=== PATIENT | male | born 1985 | race Caucasian/White ===

== ENCOUNTER 2016-05-12 17:35 | Emergency (ER) | payer OTHER ==
[~2016-05-12] VITALS: Ht 157.5 cm; Wt 68.0 kg
[~2016-05-12 17:35] MED LIST: LEVE750T70 PO
[2016-05-12 17:38] VITALS: Ht 157.5 cm; Wt 68.0 kg
[2016-05-12] MEDS ORDERED: LEVETIRACETAM IV 1,000 MG in SOD CHLORIDE 0.9% 100 ML IVPB STA (17:39)
[2016-05-12 18:33] LABS: BASOPHILS % 0.1 % (0.0-2.0); EOSINOPHILS % 0.1 % (0.0-7.0); HEMATOCRIT 44.1 % (42.0-52.0); HEMOGLOBIN 14.9 g/dl (14.0-18.0); LYMPHOCYTES # 0.6 10^3/ul (0.8-2.9); LYMPHOCYTES % 5.7 % (15.0-51.0); MEAN CORPUSCULAR HEMOGLOBIN 31.9 pg (29.0-33.0); MEAN CORPUSCULAR HGB CONC 33.8 g/dl (32.0-37.0); MEAN CORPUSCULAR VOLUME 94.3 fl (82.0-101.0); MONOCYTE # 0.3 10^3/ul (0.3-0.9); MONOCYTES % 2.6 % (0.0-11.0); NEUTROPHIL # 9.8 10^3/ul (1.6-7.5); NEUTROPHILS % 91.5 % (39.0-77.0); PLATELET COUNT 252 10^3/UL (140-440); RED BLOOD COUNT 4.67 10^6/ul (4.70-6.10); RED CELL DISTRIBUTION WIDTH 14.1 % (11.5-14.5); UNCORRECTED WBC 10.7 10^3/ul (4.8-10.8); WHITE BLOOD COUNT 10.7 10^3/ul (4.8-10.8)
[2016-05-12] MEDS ORDERED: KETOROLAC 30 MG INJ IV STA (18:42)
[2016-05-12 18:47] LABS: CONDITION 1; LH ANALYZER COMMENTS 1
--- NOTE | 2016-05-12 19:03 | ERD ---
ER Documentation Chief Complaint Date/Time DATE: 05/12/16 TIME: 19:00 Chief Complaint SEIZURE LASTED 1 MIN AT HOME IN BED WITNESSED HPI This is a 30-year-old male with a known history of epilepsy. Just prior to arrival the patient was lying in his bed when he had a witnessed tonic-clonic seizure that lasted for 1 minute at home. This was witnessed by his father. Patient lost urinary incontinence but did not bite his tongue. The father phoned 911 and when EMS arrived the father indicated the patient is on Keppra but is very noncompliant with his medications. He has had no recent headache and no fever shaking or chills. When EMS arrived they stated that the patient had slurred speech and appeared to be postictal. ROS All systems reviewed and are negative except as per history of present illness. Medications Home Meds Active Scripts Levetiracetam* (Keppra*) 750 Mg Tablet, 750 MG PO BID for 30 Days, TAB Prov:SALENA SHARPE 02/09/16 Allergies Allergies: Coded Allergies: No Known Allergy (Unverified , 05/12/16) PMhx/Soc Medical and Surgical Hx: pt denies Surgical Hx History of Surgery: No Anesthesia Reaction: No Hx Neurological Disorder: Yes (seizures) Hx Respiratory Disorders: No Hx Cardiac Disorders: No Hx Psychiatric Problems: No Hx Miscellaneous Medical Probl: No Hx Alcohol Use: Yes Hx Substance Use: Yes Hx Tobacco Use: No (smoke Marijuana 2x a day) Smoking Status: Never smoker Physical Exam Vitals Vital Signs Date Time Temp Pulse Resp B/P Pulse Ox O2 Delivery O2 Flow Rate FiO2 05/12/16 17:38 99.6 80 18 130/82 100 Physical Exam Constitutional:Well-developed. Well-nourished. HEENT:Normocephalic. Atraumatic.Pupils were equal round reactive to light. Moist mucous membranes.No tonsillar exudates. No nasoseptal hematoma. No hemotympanum. Neck: No nuchal rigidity. No lymphadenopathy. No posterior cervical spine tenderness or step-offs. Respiratory: Not using accessory muscles of respiration.Lungs were clear to auscultation bilaterally. No rhonchi. No rales. No wheezing. Cardiovascular: Regular rate regular rhythm.No murmurs. No rubs were appreciated.S1, S2 normal. Distal pulses are palpable 2+ bilaterally. GI: Abdomen was soft. Nontender. Non Distended. No pulsatile abdominal masses or bruits. No rebound. No guarding. Bowel sounds were present and normal. Muscle skeletal: Full range of motion of both the upper and lower extremities bilaterally.Normal muscle tone.No assymetrical calf tenderness or swelling. Skin: No petechia, no purpura. No lesions on the palms or the soles of the feet. No maculopapular rash. NEURO: Patient was alert, awake, orientated to person place but not to time. Gait was not observed. Patient appeared postictal with slurred speech. Result Diagram: 05/12/16 1800 Results 24 hrs Laboratory Tests Test 05/12/16 18:00 Basophils # Pending Basophils % Pending Eosinophils # Pending Eosinophils % Pending Hematocrit 44.1% Hemoglobin 14.9g/dl Lymphocytes # Pending Lymphocytes % Pending Mean Corpuscular Hemoglobin 31.9pg Mean Corpuscular Hemoglobin Concent 33.8g/dl Mean Corpuscular Volume 94.3fl Mean Platelet Volume 9.0fl Monocytes # Pending Monocytes % Pending Neutrophils # Pending Neutrophils % Pending Nucleated Red Blood Cells # Pending Nucleated Red Blood Cells % Pending Platelet Count 17340^3/UL Red Blood Count 4.6710^6/ul Red Cell Distribution Width 14.1% White Blood Count 10.710^3/ul Current Medications Medications (Trade) Dose Ordered Sig/Nazia Route PRN Reason Start Time Stop Time Status Last Admin Dose Admin Levetiracetam/ Sodium Chloride (Keppra Iv/NS) 110 ml @ 400 mls/hr ONCE STAT IVPB 05/12/16 17:39 05/12/16 17:55 DC 05/12/16 18:57 Ketorolac Tromethamine (Toradol) 30 mg ONCE STAT IV 05/12/16 18:42 05/12/16 18:43 DC 05/12/16 18:57 Procedures/MDM This patient presented to the emergency department postictal with a known history of epilepsy. The patient had no electrolyte abnormalities and no evidence of meningitis or other infectious process that could have resulted in his seizure. Given the patient is noncompliant with Keppra he did receive 1 g of Keppra intravenously and had been placed on seizure precautions immediately upon arrival into the emergency department. The patient remained in the emergency department until he was no longer postictal. He was now alert awake oriented 3 and ambulatory. He was complaining of a mild bandlike headache. He was given IV Toradol. He had no further seizure activity while in the emergency department. I did educate the patient on the importance of adhering to his antiepileptic medication. The patient was discharged home in fair condition. They were instructed to return to the emergency department at any time if there was any worsening of their condition. The patient stated they would follow up with their PCP in the next 24-48 hours to initiate a suitable medication regimen under the care of their PCP as well as to allow their PCP to monitor any drug reactions. The patient was discharged home with prescriptions after they gave informed consent to the new medication. They were also fully informed by myself on the adverse effects and adverse drug interactions in order to provide adequate safeguards to prevent possible adverse reactions to medications. Departure Diagnosis: Primary Impression: Breakthrough seizure Condition: TANVI Ortiz May 12, 2016 19:03
[2016-05-12 19:09] LABS: ALBUMIN 4.4 g/dl (3.3-4.9)
[2016-05-12 19:10] LABS: POTASSIUM 4.2 mmol/L (3.5-5.1)
[2016-05-12 19:12] LABS: ALBUMIN/GLOBULIN RATIO 1.62; BILIRUBIN,INDIRECT 0.1 mg/dl (0-1.1); BILIRUBIN,TOTAL 0.1 mg/dl (0.2-1.3); CREATININE 0.82 mg/dl (0.61-1.24); TOTAL PROTEIN 7.1 g/dl (6.1-8.1)
[2016-05-12 19:13] LABS: CALCIUM 9.1 mg/dl (8.4-10.2)
[2016-05-12 19:17] LABS: PLATELET ESTIMATE PLT APPEAR ADEQUATE
[2016-05-12 20:22] VITALS: BP 124/74; PULSE 62; RESP 16; TEMP 98.9
== END 2016-05-12 20:23 | disposition home or self-care (01) ==
LOC: E/R 17:35
DX: G40.909 Epilepsy, unspecified, not intractable, without status epilepticus (principal); R40.2142 Coma scale, eyes open, spontaneous, at arrival to emergency department; R40.2252 Coma scale, best verbal response, oriented, at arrival to emergency department; R40.2362 Coma scale, best motor response, obeys commands, at arrival to emergency department
CPT/HCPCS: 36415; 80053; 85025; 96374; 96375; J1885; Z7502; J1953

== ENCOUNTER 2016-11-19 07:21 | Emergency (ER) | payer OTHER ==
[~2016-11-19] VITALS: Wt 64.0 kg
[2016-11-19 07:23] VITALS: Wt 64.0 kg
[2016-11-19] MEDS ORDERED: LEVETIRACETAM 1000 MG (PMX) 100 ML IVPB STA (07:27)
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
== END 2016-11-19 10:05 | disposition home or self-care (01) ==
LOC: E/R 07:21
DX: G40.802 Other epilepsy, not intractable, without status epilepticus (principal); R40.2142 Coma scale, eyes open, spontaneous, at arrival to emergency department; R40.2252 Coma scale, best verbal response, oriented, at arrival to emergency department; R40.2362 Coma scale, best motor response, obeys commands, at arrival to emergency department; Z91.14 Patient's other noncompliance with medication regimen
CPT/HCPCS: 82962; 96374; J1953; Z7502

== ENCOUNTER 2018-07-21 15:19 | Emergency (ER) | payer OTHER ==
[~2018-07-21] VITALS: Ht 160 cm; Wt 62.0 kg
[2018-07-21 15:45] VITALS: Ht 160 cm; Wt 62.0 kg
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
[2018-07-22 01:12] VITALS: BP 149/83; PULSE 76; RESP 20
== END 2018-07-22 01:13 | disposition home or self-care (01) ==
LOC: FTE 15:19
DX: S02.32XA Fracture of orbital floor, left side, initial encounter for closed fracture (principal); H49.02 Third [oculomotor] nerve palsy, left eye; Y04.2XXA Assault by strike against or bumped into by another person, initial encounter
CPT/HCPCS: 70480

== ENCOUNTER 2018-11-18 15:28 | Emergency (ER) | payer OTHER ==
[~2018-11-18] VITALS: Ht 157.5 cm; Wt 61.4 kg
[~2018-11-18 15:28] MED LIST changes: +IBUP800T48 PO
[2018-11-18 15:30] VITALS: BP 133/75; PULSE 80; RESP 18; Ht 157.5 cm; Wt 61.4 kg
[2018-11-18] MEDS ORDERED: CYCLOBENZAPRINE 10 MG TAB PO ONE (16:00)
[2018-11-18] MEDS ORDERED: HYDROCODONE/APAP (5/325) TAB PO ONE (16:00)
== END 2018-11-18 18:01 | disposition left against medical advice (07) ==
LOC: FTE 15:28
DX: M54.2 Cervicalgia (principal); F17.210 Nicotine dependence, cigarettes, uncomplicated
CPT/HCPCS: 72040; Z7502; Z7610